=== PATIENT | male | born 1970 | race Caucasian/White ===

== ENCOUNTER 2021-02-14 16:46 | Emergency (ER) | payer OTHER ==
[2021-02-14] MEDS ORDERED: Sodium Chloride 0.9% 1,000 ML IV STA (20:38)
[2021-02-14] MEDS ORDERED: Ondansetron 4 MG/2 ML SDV IVPUSH ONE (20:38)
[2021-02-14] MEDS: Sodium Chloride 0.9% 10 ML Syringe FLUSH PRN ×2 (20:50→21:58)
[2021-02-14] MEDS ORDERED: Iopamidol 612 MG/ML 100 ML Bottle IVPUSH ONE (20:52)
[2021-02-14] MEDS ORDERED: Iopamidol 612 MG/ML 50 ML SDV IVPUSH ONE (20:52)
[2021-02-14] MEDS ORDERED: Diatrizoate Meglumine/Diatrizoate Sodium 37% 120 ML Bottle PO ONE (20:52)
--- NOTE | 2021-02-14 20:53 | EDM.PDOC ---
ED HPI GENERAL MEDICAL PROBLEM - General Chief Complaint: Abdominal Pain Stated Complaint: ABDOMINAL PAIN Time Seen by Provider: 02/14/21 20:25 Source of Information: Reports: Patient, RN Notes Reviewed History Limitations: Reports: No Limitations - History of Present Illness INITIAL COMMENTS - FREE TEXT/NARRATIVE: Patient is a 50-year-old male presenting to the emergency department with complaints of bilateral lower abdominal pain for the last 3 days. States symptoms began on Sunday. He has been experiencing nausea as well as diarrhea. Denies any blood in his stools. Patient reports that he has had recurrences of similar type pain, for which she has been evaluated by GI specialist and his primary care provider. The last 2 days, the pain has been more severe than it normally is. He reports that no abnormalities have been found on the testing that has been done up until this point. He has not taken anything [id number] for pain. Denies any fever or chills, but does state that he occasionally gets "hot sweats". Lower Abdominal Pain Score (Numeric/FACES): 10 - Related Data Allergies Allergy/AdvReac Type Severity Reaction Status Date / Time No Known Allergies Allergy Verified 02/14/21 18:42 Home Meds: Home Meds Dicyclomine [Bentyl] 20 mg PO TID PRN #15 tab 02/14/21 [Rx] ED ROS GENERAL - Review of Systems Review Of Systems: See Below Constitutional: Reports: No Symptoms. Denies: Fever, Chills HEENT: Reports: No Symptoms Respiratory: Reports: No Symptoms Cardiovascular: Reports: No Symptoms Endocrine: Reports: No Symptoms GI/Abdominal: Reports: Abdominal Pain, Diarrhea, Nausea. Denies: Vomiting : Reports: No Symptoms Musculoskeletal: Reports: No Symptoms Skin: Reports: No Symptoms Neurological: Reports: No Symptoms Psychiatric: Reports: No Symptoms Hematologic/Lymphatic: Reports: No Symptoms Immunologic: Reports: No Symptoms ED EXAM, GI/ABD - Physical Exam Exam: See Below Exam Limited By: No Limitations General Appearance: Alert, WD/WN, No Apparent Distress Respiratory/Chest: No Respiratory Distress, Lungs Clear, Normal Breath Sounds, No Accessory Muscle Use, Chest Non-Tender Cardiovascular: Normal Peripheral Pulses, Regular Rate, Rhythm, No Edema, No Gallop, No JVD, No Murmur, No Rub GI/Abdominal Exam: Normal Bowel Sounds, Soft, No Organomegaly, No Distention, No Abnormal Bruit, No Mass, Pelvis Stable, Tender (Bilateral lower abdominal). No: Guarding, Rigid, Rebound Extremities: Normal Inspection, Normal Range of Motion, Non-Tender, Normal Capillary Refill, No Pedal Edema Neurological: Alert, Oriented, CN II-XII Intact, Normal Cognition, Normal Gait, Normal Reflexes, No Motor/Sensory Deficits Psychiatric: Normal Affect, Normal Mood Skin Exam: Warm, Dry, Intact, Normal Color, No Rash Course - Vital Signs Last Recorded V/S: Last Vital Signs Temp 98.1 F 02/14/21 18:37 Pulse 89 02/14/21 18:37 Resp 18 02/14/21 18:37 BP 124/80 02/14/21 18:37 Pulse Ox 98 02/14/21 18:37 - Orders/Labs/Meds Orders: Active Orders 24 hr Category Date Time Status Abdomen Pelvis w Cont [CT] Stat Exams 02/14/21 20:38 Taken Sodium Chloride 0.9% [Normal Saline] 1,000 ml Med 02/14/21 20:38 Active IV NOW Sodium Chloride 0.9% [Saline Flush] Med 02/14/21 20:38 Active 10 ml FLUSH ASDIRECTED PRN Peripheral IV Insertion Adult [OM.PC] Stat Oth 02/14/21 20:38 Ordered Medication Orders Sodium Chloride (Normal Saline) 1,000 mls @ 150 mls/hr IV NOW STA Stop: 02/15/21 03:17 Last Admin: 02/14/21 20:49 Dose: 150 mls/hr Documented by: FRANCISCA Sodium Chloride (Sodium Chloride 0.9% 10 Ml Syringe) 10 ml FLUSH ASDIRECTED PRN PRN Reason: Keep Vein Open Last Admin: 02/14/21 21:58 Dose: 10 ml Documented by: Admin: 02/14/21 20:50 Dose: 10 ml Documented by: FRANCISCA Labs: Laboratory Tests 02/14/21 02/14/21 02/14/21 Range/Units 20:41 20:41 20:41 WBC 11.04 H (4.23-9.07) K/mm3 RBC 5.17 (4.63-6.08) M/mm3 Hgb 16.1 (13.7-17.5) gm/dl Hct 47.1 (40.1-51.0) % MCV 91.1 (79.0-92.2) fl MCH 31.1 (25.7-32.2) pg MCHC 34.2 (32.2-35.5) g/dl RDW Std Deviation 44.0 H (35.1-43.9) fL Plt Count 197 (163-337) K/mm3 MPV 10.2 (9.4-12.3) fl Neut % (Auto) 77.2 H (34.0-67.9) % Lymph % (Auto) 13.9 L (21.8-53.1) % [place] % (Auto) 7.7 (5.3-12.2) % Eos % (Auto) 0.7 L (0.8-7.0) Baso % (Auto) 0.3 (0.1-1.2) % Neut # (Auto) 8.53 H (1.78-5.38) K/mm3 Lymph # (Auto) 1.53 (1.32-3.57) K/mm3 [place] # (Auto) 0.85 H (0.30-0.82) K/mm3 Eos # (Auto) 0.08 (0.04-0.54) K/mm3 Baso # (Auto) 0.03 (0.01-0.08) K/mm3 Sodium 137 (136-145) mEq/L Potassium 3.5 (3.5-5.1) mEq/L Chloride 103 (98-107) mEq/L Carbon Dioxide 25 (21-32) mEq/L Anion Gap 12.5 (5-15) BUN 10 (7-18) mg/dL Creatinine 1.2 (0.7-1.3) mg/dL Est Cr Clr Drug Dosing 72.45 mL/min Estimated GFR (MDRD) > 60 (>60) mL/min BUN/Creatinine Ratio 8.3 L (14-18) Glucose 119 H (70-99) mg/dL Calcium 9.1 (8.5-10.1) mg/dL Total Bilirubin 1.7 H (0.2-1.0) mg/dL AST 24 (15-37) U/L ALT 69 H (16-63) U/L Alkaline Phosphatase 83 (46-116) U/L C-Reactive Protein 2.5 H* (<1.0) mg/dL Total Protein 8.5 H (6.4-8.2) g/dl Albumin 4.3 (3.4-5.0) g/dl Globulin 4.2 gm/dL Albumin/Globulin Ratio 1.0 (1-2) Lipase 78 (73-393) U/L Meds: Medications Generic Name Dose Route Start Last Admin Trade Name Joseq PRN Reason Stop Dose Admin Sodium Chloride 1,000 mls @ 150 mls/hr 02/14/21 20:38 02/14/21 20:49 Normal Saline IV 02/15/21 03:17 150 mls/hr NOW STA Administration Sodium Chloride 10 ml 02/14/21 20:38 02/14/21 21:58 Sodium Chloride 0.9% 10 Ml Syringe FLUSH 10 ml ASDIRECTED PRN Administration Keep Vein Open Discontinued Medications Generic Name Dose Route Start Last Admin Trade Name Joseq PRN Reason Stop Dose Admin Diatrizoate Meglum/Diatrizoate Sod 60 ml 02/14/21 20:52 02/14/21 21:58 Diatrizoate Meglumine/Diatrizoate Sodium 37% 120 Ml Bottle PO 02/14/21 20:53 60 ml ONETIME ONE Administration Dicyclomine HCl 20 mg 02/14/21 22:59 02/14/21 23:04 Dicyclomine 10 Mg Cap PO 02/14/21 23:00 20 mg ONETIME ONE Administration Iopamidol 100 ml 02/14/21 20:52 02/14/21 21:57 Iopamidol 612 Mg/Ml 100 Ml Bottle IVPUSH 02/14/21 20:53 100 ml ONETIME ONE Administration Iopamidol 25 ml 02/14/21 20:52 Iopamidol 612 Mg/Ml 50 Ml Sdv IVPUSH 02/14/21 20:53 ONETIME ONE Ondansetron HCl 4 mg 02/14/21 20:38 02/14/21 20:49 Ondansetron 4 Mg/2 Ml Sdv IVPUSH 02/14/21 20:39 4 mg ONETIME ONE Administration - Re-Assessments/Exams Free Text/Narrative Re-Assessment/Exam: Patient is a 50-year-old male presenting to the emergency department with complaints of low abdominal pain, nausea, and diarrhea. States he has had this pain off and on for many months. States normally it resolves, however this time the pain has been more significant for the last 2 days. Reports seeing GI specialist in the past and that nothing was found abnormal. Denies any fever but states he has had "hot sweats ". On exam, he has bilateral lower abdominal tenderness. No rigidity or rebound. I have ordered blood work and CT scan of the abdomen pelvis. I will give him IV fluids and Zofran for nausea. He denies a need for pain medications. 02/14/21 22:55 Hematology is significant for WBC 11.04, CRP 2.5. Is otherwise unremarkable.CT scan of the abdomen pelvis impression as follows: 1. Right colonic edema extending from the cecum to approximate the mid transverse colon. This likely represents right-sided colitis. There is more prominent wall thickening with some irregularities in the cecum. Cannot exclude mass. Follow-up imaging such as endoscopy versus barium enema recommended. 2. Nonspecific subcentimeter lymph nodes in the right lower abdominal mesent [place]. 3. Noninflamed gasless appendix is visible. 4. Fatty liver change. 5. Nonspecific prostatic enlargement. Recommend clinical correlation. Results discussed with patient. He reports that he has been told about prostate enlargement in the past. I am going to send referral to general surgeon, Dr. Bailey I recommend he contact his office tomorrow morning for follow-up and to arrange for subsequent imaging. I will give him a dose of Bentyl this evening and send prescription to help with his abdominal cramping. He states that he does have pain medications that were prescribed to him by his primary care provider at home. Denies the need for nausea medication. Discussed return precautions. Discharge instructions as documented. Departure - Departure Time of Disposition: 22:57 Disposition: Home, Self-Care 01 Condition: Good Clinical Impression: Abdominal pain Qualifiers: Abdominal location: unspecified location Qualified Code(s): R10.9 - Unspecified abdominal pain - Discharge Information *PRESCRIPTION DRUG MONITORING PROGRAM REVIEWED*: No *COPY OF PRESCRIPTION DRUG MONITORING REPORT IN PATIENT DEREK: No Prescriptions: Dicyclomine [Bentyl] 20 mg PO TID PRN #15 tab PRN Reason: Abdominal Pain Instructions: Abdominal Pain, Adult, [id number] Referrals: Jhony Hedrick MD [Primary Care Provider] - Mulugeta Bailey MD [Physician] - Forms: ED Department Discharge Additional Instructions: You were seen in the emergency department today for low abdominal pain, nausea, and diarrhea. Work-up included blood work and a CT scan your abdomen pelvis. Results of your CT scan did show evidence of inflammation in your right lower colon. Further testing is recommended to identify the cause of this. Referral has been sent to general surgeon, Dr. Bailey. Recommend contacting his office tomorrow morning to set up follow-up. There is also evidence of enlarged prostate. Recommend following up with Dr. Walls for evaluation of this. While in the ER, you received a dose of Bentyl for abdominal cramping. Prescription has been sent for this as well. Take this as prescribed. If you should experience any new or worsening symptoms, please do not hesitate to return to the emergency department for reevaluation. Sepsis Event Note (ED) - Evaluation Sepsis Screening Result: No Definite Risk - Focused Exam Vital Signs: Vital Signs Temp Pulse Resp BP Pulse Ox 02/14/21 18:37 98.1 F 89 18 124/80 98 - My Orders Last 24 Hours: My Active Orders 02/14/21 20:38 Abdomen Pelvis w Cont [CT] Stat Sodium Chloride 0.9% [Normal Saline] 1,000 ml IV NOW Sodium Chloride 0.9% [Saline Flush] 10 ml FLUSH ASDIRECTED PRN Peripheral IV Insertion Adult [OM.PC] Stat - Assessment/Plan Last 24 Hours: My Active Orders 02/14/21 20:38 Abdomen Pelvis w Cont [CT] Stat Sodium Chloride 0.9% [Normal Saline] 1,000 ml IV NOW Sodium Chloride 0.9% [Saline Flush] 10 ml FLUSH ASDIRECTED PRN Peripheral IV Insertion Adult [OM.PC] Stat
[2021-02-14] MEDS ORDERED: Dicyclomine 10 MG Cap PO ONE (22:59)
--- NOTE | 2021-02-15 08:05 | CT ---
CT abdomen and pelvis Technique: Multiple axial sections were obtained from above the dome of the diaphragm inferiorly through the pubic symphysis. Intravenous and oral contrast were utilized. Delayed images were also obtained through the abdomen and pelvis. Reconstructed coronal and sagittal images were obtained. Comparison: No prior abdominal imaging is available. Findings: Visualized lung bases show nothing acute. Liver contains no focal parenchymal abnormality. Spleen size is normal. Gallbladder contains no calcified gallstones. Adrenal glands show no nodule. Pancreas is within normal limits. Kidneys show symmetric contrast enhancement. No hydronephrosis or mass is appreciated. Delayed images show contrast within the collecting systems of both kidneys. Contrast is also noted within nondilated ureters and within the bladder. Abdominal aorta shows no aneurysm. No retroperitoneal adenopathy or mesenteric abnormalities are seen. Prostate gland is slightly enlarged with evidence of calcifications. No discrete pelvic adenopathy is noted. Diffuse wall thickening is seen within the cecum as well as within the ascending and transverse colon. Additional mucosal thickening scattered within portions of the descending colon. No free fluid is seen. No small bowel dilatation is noted. Appendix is seen which is normal in size. Slightly prominent mesenteric lymph nodes are seen within the right lower quadrant presumably on an inflammatory basis. Bone window settings were reviewed which show a very minimal scattered endplate spurring within the spine. No acute osseous abnormality is appreciated. Impression: 1. Diffuse wall thickening within the colon compatible with nonspecific colitis. 2. Slightly prominent lymph nodes in the mesentery within the right lower quadrant presumably due to inflammatory enlargement from the colitis. 3. Prostate gland is enlarged which is nonspecific for patient of this age. Diagnostic code #3 I mildly disagree with preliminary report from [facility], finalized on 02/14/21, 11:43 PM CDT, code 2
== END 2021-02-14 23:05 | disposition home or self-care (01) ==
LOC: JD.ED 16:46
DX: R10.31 Right lower quadrant pain (principal); R10.32 Left lower quadrant pain
CPT/HCPCS: 36415; 74177; 80053; 83690; 85025; 86140; 96374; 99284; A9270; J2405; J7030; Q9963; Q9967

== ENCOUNTER 2021-02-21 12:00 | Emergency (ER) | payer OTHER ==
[2021-02-21] MEDS ORDERED: Ondansetron 4 MG Tab.DIS PO ONE (12:29)
--- NOTE | 2021-02-21 13:03 | EDM.PDOC ---
ED HPI GENERAL MEDICAL PROBLEM - General Chief Complaint: General Stated Complaint: COVID +/WORSE SYMPTOMS Time Seen by Provider: 02/21/21 12:08 Source of Information: Reports: Patient, RN Notes Reviewed History Limitations: Reports: No Limitations - History of Present Illness INITIAL COMMENTS - FREE TEXT/NARRATIVE: Patient is a 50-year-old male who presents to the ER for the evaluation of his COVID-19 symptoms. Patient states he has been sick for 7 days. He did not receive any COVID-19 vaccine. Patient states that he lost his sense of taste at the beginning of his COVID-19 symptoms, but only tested positive in the last day or so for COVID-19. He presents to the ER, because he thinks he is dehydrated as he is just not wanting to eat or drink at home. States he is nauseous but has not had any vomiting or diarrhea. He does have some generalized stomach issues that he has been dealing with prior to this. Patient's primary care provider is Dr. Walls. Patient has a slight temperature when he presents to the ER 100.6 F, he is not having any sort of increased shortness of breath, and O2 sats were 96% on room air, and he is in no visible respiratory distress whatsoever. Abdomen Pain Score (Numeric/FACES): 7 - Related Data Allergies Allergy/AdvReac Type Severity Reaction Status Date / Time No Known Allergies Allergy Verified 02/21/21 12:12 Home Meds: Home Meds Dicyclomine [Bentyl] 20 mg PO TID PRN #15 tab 02/14/21 [Rx] Ondansetron [Zofran ODT] 4 mg PO Q8H PRN #15 tab.dis 02/21/21 [Rx] Past Medical History HEENT History: Reports: Impaired Vision Other HEENT History: Wears glasses Gastrointestinal History: Reports: Other (See Below) Other Gastrointestinal History: "stomach issues" states has had appt with Dr. Bailey - ongoing - Infectious Disease History Infectious Disease History: Reports: Novel Coronavirus (01/2021) Social & Family History - Tobacco Use Tobacco Use Status *Q: Never Tobacco User Second Hand Smoke Exposure: No - Recreational Drug Use Recreational Drug Use: No ED ROS GENERAL - Review of Systems Review Of Systems: Comprehensive ROS is negative, except as noted in HPI. ED EXAM, GENERAL - Physical Exam Exam: See Below Exam Limited By: No Limitations General Appearance: Alert, WD/WN, No Apparent Distress Respiratory/Chest: No Respiratory Distress, Lungs Clear, Normal Breath Sounds, No Accessory Muscle Use, Chest Non-Tender Cardiovascular: Normal Peripheral Pulses, Regular Rate, Rhythm, No Edema Peripheral Pulses: 2+: Radial (L), Radial (R) Extremities: Normal Inspection, Normal Capillary Refill Neurological: Alert, Oriented, Normal Cognition, No Motor/Sensory Deficits Psychiatric: Normal Affect, Normal Mood Skin Exam: Warm, Dry, Intact, Normal Color, No Rash Course - Vital Signs Last Recorded V/S: Last Vital Signs Temp 100.6 F 02/21/21 12:08 Pulse 104 H 02/21/21 12:08 Resp 16 02/21/21 12:08 BP 133/93 H 02/21/21 12:08 Pulse Ox 96 02/21/21 12:08 - Orders/Labs/Meds Orders: Active Orders 24 hr Category Date Time Status Oral Fluid Challenge [RC] ASDIRECTED Care 02/21/21 12:43 Active Orthostatic Vital Signs [RC] ASDIRECTED Care 02/21/21 12:29 Active Meds: Medications Discontinued Medications Generic Name Dose Route Start Last Admin Trade Name Freq PRN Reason Stop Dose Admin Ondansetron HCl 4 mg 02/21/21 12:29 02/21/21 13:14 Ondansetron 4 Mg Tab.Dis PO 02/21/21 12:30 4 mg ONETIME ONE Administration - Re-Assessments/Exams Free Text/Narrative Re-Assessment/Exam: 02/21/21 12:41 Patient presents to the ER for his ongoing COVID-19 symptoms. I was made aware by our charge nurse, that the IV Regeneron therapy is an extremely short supply, and only needs to be ordered for the patient's that are the sickest at this time. This gentleman however being sick with COVID-19, he should be fine to get this done on more of an outpatient basis. I spoke with the patient to provide information about Regeneron treatment. I offered them the "Patient and caregiver EUA Regeneron fact sheet" to read and review. I stated that the drug has been approved by an emergency use authorization (EUA) process and has not been fully FDA reviewed or approved. The patient meets the EUA requirements. I discussed there are other potential treatment options that are currently not FDA approved to treat COVID-19. I did offer an opportunity to ask questions and all questions were answered. The patient voiced understanding and agreed to proceed with the treatment. For today's purposes, we will get orthostatic vital signs, chest x-ray and give him a dose of Zofran and try to do an oral fluid challenge to see if this helps relieve his slight dizziness he was complaining about. 02/21/21 13:16 Chest x-ray shows a minimal area of consolidation at the Left costophrenic angle-suspicious for pneumonia either bacterial or minimal COVID. Since the patient has a diagnosis of a COVID-19 and its likely its more minimal COVID-19 pneumonia versus bacterial pneumonia. Departure - Departure Time of Disposition: 13:35 Disposition: Home, Self-Care 01 Condition: Good Clinical Impression: COVID-19 - Discharge Information *PRESCRIPTION DRUG MONITORING PROGRAM REVIEWED*: No *COPY OF PRESCRIPTION DRUG MONITORING REPORT IN PATIENT DEREK: No Prescriptions: Ondansetron [Zofran ODT] 4 mg PO Q8H PRN #15 tab.dis PRN Reason: Nausea Instructions: 10 Things You Can Do to Manage Your COVID-19 Symptoms at Home - [facility] (12/10/2020) Referrals: Jhony Hedrick MD [Physician] - Forms: ED Department Discharge Additional Instructions: You were seen in the ER today for ongoing and/or worsening COVID-19 symptoms. Your chest x-ray showed very minimal signs of pneumonia at this time; which is typical for ongoing COVID-19 disease. Your oxygen levels were great at 96% on room air. You are a candidate for IV Regeneron therapy; however it is in short supply, and we are expected to get more of this medication tomorrow. This medication is thought to work by making you a little less sick, and helps to decrease the length of time that you are sick. An outpatient order has been written for you, you will be scheduled for this. IV fluids are not routinely given to COVID-19 patients, as it seems to worsen the respiratory status. This was the reason for you not receiving IV fluids at today's visit. Please try to increase your oral fluid intake, and eat multiple small meals throughout the day, to keep yourself healthy. You need to keep yourself nourished in order to fight off this disease. You can try a liquid diet like gatorade/powerade as well to get your electrolytes. You have been given an antinausea medication called Zofran, this medication works by getting dissolved under your tongue every 8 hours for ongoing nausea. Please do so 15 to 20 minutes prior to meals, or stick to a clear liquid diet as outlined above. You will need to continue to feed yourself in order to fight off this disease. This medication was electronically sent to the [facility] pharmacy located on [address]. You may take 500 mg Tylenol every hours 6 hours for pain/fever relief. Do not exceed 4000 mg Tylenol in a 24-hour time span. However, running a fever is your body's natural response to illness, and it allows the body to develop antibodies to disease, we are recommending trying to limit the use of Tylenol as much as possible to allow your body's natural immune response. Recommend you obtain a pulse oximeter and monitor your oxygen levels at home, you should place the monitor on your finger, and sit in a calm, quiet position for a few minutes and then record the number that is on the screen. If this consistently below 90% on room air without movement, this would be cause for concern to come back to the hospital for further management of your COVID-19 disease. Please follow all guidance set forth from [facility], regarding isolation purposes for your disease process. General isolation times are 10 days from when you started being symptomatic. Sepsis Event Note (ED) - Evaluation Sepsis Screening Result: No Definite Risk - Focused Exam Vital Signs: Vital Signs Temp Pulse Resp BP Pulse Ox 02/21/21 12:08 100.6 F 104 H 16 133/93 H 96 - My Orders Last 24 Hours: My Active Orders 02/21/21 12:29 Orthostatic Vital Signs [RC] ASDIRECTED 02/21/21 12:43 Oral Fluid Challenge [RC] ASDIRECTED - Assessment/Plan Last 24 Hours: My Active Orders 02/21/21 12:29 Orthostatic Vital Signs [RC] ASDIRECTED 02/21/21 12:43 Oral Fluid Challenge [RC] ASDIRECTED
--- NOTE | 2021-02-21 13:12 | CR ---
Chest: Frontal view of the chest was obtained. Comparison: No prior chest imaging is available. Mild increased density is seen within the lateral left costophrenic angle presumably due to small area of pneumonia. Lungs otherwise are clear. Heart size and mediastinum are normal. Bony structures show nothing acute. Impression: 1. Small density within the lateral left costophrenic angle compatible with a minimal area of pneumonia either bacterial or representing minimal COVID. Diagnostic code #3
== END 2021-02-21 14:20 | disposition home or self-care (01) ==
LOC: JD.ED 12:00
DX: U07.1 COVID-19 (principal)
CPT/HCPCS: 71045; 99284; A9270

== ENCOUNTER 2022-12-08 10:11 | Emergency (ER) | payer BC, OTHER ==
[2022-12-08] MEDS ORDERED: Lidocaine 2% 11 ML Jelly Filled Syringe MUCMEM ONE (10:37)
[2022-12-08] MEDS ORDERED: Diphtheria,Pertussis(Acell),Tetanus Vaccine 0.5 ML Syringe IM ONE (10:43)
[2022-12-08] MEDS ORDERED: Lidocaine 1% 10 ML MDV INJECT ONE (11:14)
== END 2022-12-08 12:13 | disposition home or self-care (01) ==
LOC: JD.ED 10:11 → SUPCPDRO 10:11 → JD.ED 12:13
DX: S71.112A Laceration without foreign body, left thigh, initial encounter (principal); Z23 Encounter for immunization; Z86.16 Personal history of COVID-19; Z91.048 Other nonmedicinal substance allergy status; W22.8XXA Striking against or struck by other objects, initial encounter; Y92.009 Unspecified place in unspecified non-institutional (private) residence as the place of occurrence of the external cause
CPT/HCPCS: 12002; 73552; 90471; 90715; 99283; A9270; J3490